=== PATIENT | male | born 1975 | race African-American/Black ===

== ENCOUNTER 2016-08-23 08:54 | Emergency (ER) | payer MEDICAID ==
[~2016-08-23] VITALS: Ht 175.3 cm; Wt 90.9 kg
[~2016-08-23 08:54] MED LIST: AMLO5TAB2 PO; DOCU-30 PO; NO MEDICATIONS; OXYC1TAB7 PO; OXYC5TAB2 PO; OXYC5TAB3 PO; PENI500T PO; SULF1TAB3 PO
[2016-08-23] MEDS ORDERED: KETOROLAC 30 MG/1 ML ONE (09:26)
[2016-08-23] MEDS ORDERED: KETOROLAC 30 MG/1 ML IVPush ONE (09:30)
[2016-08-23] MEDS ORDERED: SODIUM CHLORIDE FLUSH 10ML SYR IVF ONE (09:30)
[2016-08-23 09:58] LABS: BLOOD UREA NITROGEN 23 mg/dL (7-18)
[2016-08-23] MEDS ORDERED: MAALOX/HYOSCYAMINE/LIDOCAINE 45 ML BOTTLE ONE (11:28)
[2016-08-23] MEDS ORDERED: MAALOX/HYOSCYAMINE/LIDOCAINE 45 ML BOTTLE PO ONE (11:30)
[2016-08-23 11:59] VITALS: BP 122/81
== END 2016-08-23 12:01 | disposition home or self-care (01) ==
LOC: ED 10:12
DX: R07.89 Other chest pain (principal); I10 Essential (primary) hypertension
CPT/HCPCS: 36415; 71020; 76700; 80048; 82040; 84484; 85025; 85379; 93005; 96374; 99285; J1885

== ENCOUNTER 2017-05-04 09:03 | Emergency (ER) | payer MEDICAID ==
[~2017-05-04] VITALS: Ht 175.3 cm; Wt 100.1 kg
[~2017-05-04 09:03] MED LIST changes: +DOCU-131 PO; -DOCU-30 PO; +SULF-169 PO; -SULF1TAB3 PO
[2017-05-04 10:42] VITALS: BP 128/84
== END 2017-05-04 10:44 | disposition home or self-care (01) ==
LOC: ED 10:39
DX: R05 Cough (principal); I10 Essential (primary) hypertension
CPT/HCPCS: 71046; 99284

== ENCOUNTER 2017-07-24 09:39 | Emergency (ER) | payer MEDICAID ==
[~2017-07-24] VITALS: Ht 175.3 cm; Wt 100.2 kg
[2017-07-24 10:42] LABS: BASOPHILS # (AUTO) 0.01 x10^3/uL (0-0.1); BASOPHILS % (AUTO) 0 % (0-1); EOSINOPHILS # (AUTO) 0.05 x10^3/uL (0-0.4); EOSINOPHILS % (AUTO) 2 % (1-7); LYMPHOCYTES # (AUTO) 0.75 x10^3/uL (1-3.4); LYMPHOCYTES % (AUTO) 23 % (22-44); MD NO; MEAN CORPUSCULAR HEMOGLOBIN 29.7 pg (27.5-34.5); MEAN CORPUSCULAR HGB CONC 33.3 g/dL (33.2-36.2); MEAN CORPUSCULAR VOLUME 89.3 fL (81-97); MONOCYTES # (AUTO) 0.23 x10^3/uL (0.2-0.8); MONOCYTES % (AUTO) 7 % (2-9); NEUTROPHILS # (AUTO) 2.27 x10^3/uL (1.8-6.8); NEUTROPHILS % (AUTO) 69 % (42-75); PLATELET COUNT 108 x10^3/uL (130-400); RED BLOOD COUNT 4.64 x10^6/uL (4.38-5.82); RED CELL DISTRIBUTION WIDTH 15.6 % (9.4-14.8)
[2017-07-24 10:53] LABS: ANION GAP 6 mmol/L (5-15); CHLORIDE 100 mmol/L (98-107)
[2017-07-24 10:54] LABS: ALANINE AMINOTRANSFERASE 287 U/L (12-78)
[2017-07-24 10:56] LABS: ALKALINE PHOSPHATASE 57 U/L (45-117); BILIRUBIN,TOTAL 1.2 mg/dL (0.2-1.0); TOTAL PROTEIN 7.4 g/dL (6.4-8.2); TROPONIN I < 0.015 ng/mL (0.000-0.045)
[2017-07-24 11:00] VITALS: BP 113/65
[2017-07-24] MEDS ORDERED: POTASSIUM CHLORIDE 20 MEQ TAB.ER.PRT ONE (11:14)
[2017-07-24 11:26] LABS: CULTURE INDICATED? YES; MICROSCOPIC AUTO
[2017-07-24] MEDS ORDERED: POTASSIUM CHLORIDE 20 MEQ TAB.ER.PRT PO ONE (11:30)
== END 2017-07-24 11:55 | disposition home or self-care (01) ==
LOC: ED 11:29
DX: R94.5 Abnormal results of liver function studies (principal)
CPT/HCPCS: 36415; 80053; 81001; 83605; 84484; 85025; 87086; 93005; 99285

== ENCOUNTER 2018-06-18 19:30 | Emergency (ER) | payer BC, MEDICAID ==
[~2018-06-18] VITALS: Ht 175.3 cm; Wt 115.5 kg
[~2018-06-18 19:30] MED LIST changes: +AMLO-150 PO; -AMLO5TAB2 PO
[2018-06-18 19:41] VITALS: BP 165/82
--- NOTE | 2018-06-18 20:00 | NUR ---
LEFT RIB PAIN FOR FOUR DAYS. PT REPORTS TEMP OF 102 TWO DAYS AGO. +COUGH. PT STATES HURTS ON L SIDE WHEN HE COUGHS, SOMETIMES AROUND TO BACK. WHEN BLOWING NOSE, IT IS YELLOW
[2018-06-18 20:04] LABS: BASOPHILS # (AUTO) 0.02 x10^3/uL (0-0.1); BASOPHILS % (AUTO) 0 % (0-1); EOSINOPHILS # (AUTO) 0.08 x10^3/uL (0-0.4); EOSINOPHILS % (AUTO) 1 % (1-7); LYMPHOCYTES % (AUTO) 15 % (22-44); MD NO; MEAN CORPUSCULAR HEMOGLOBIN 28.6 pg (27.5-34.5); MEAN CORPUSCULAR HGB CONC 33.4 g/dL (33.2-36.2); MEAN CORPUSCULAR VOLUME 85.6 fL (81-97); MEAN PLATELET VOLUME 7.3 fL (7.4-10.4); MONOCYTES % (AUTO) 8 % (2-9); NEUTROPHILS # (AUTO) 6.95 x10^3/uL (1.8-6.8); NEUTROPHILS % (AUTO) 76 % (42-75); PLATELET COUNT 331 x10^3/uL (130-400); RED BLOOD COUNT 4.97 x10^6/uL (4.38-5.82)
--- NOTE | 2018-06-18 20:09 | NUR ---
PT PLACED ON PULSE OX STATED NO NEED FOR WATER HAULER
[2018-06-18 20:15] LABS: ALANINE AMINOTRANSFERASE 41 U/L (12-78); ALBUMIN 3.4 g/dL (3.4-5.0); ANION GAP 4 mmol/L (5-15); CALCIUM 8.3 mg/dL (8.5-10.1); CHLORIDE 105 mmol/L (98-107); CREATININE 1.03 mg/dL (0.7-1.3)
[2018-06-18 20:17] LABS: ALKALINE PHOSPHATASE 110 U/L (45-117); BILIRUBIN,TOTAL 0.5 mg/dL (0.2-1.0)
[2018-06-18] MEDS ORDERED: IBUPROFEN 600 MG TABLET PO ONE (20:30)
[2018-06-18] MEDS ORDERED: IBUPROFEN 600 MG TABLET ONE (20:43)
--- NOTE | 2018-06-18 21:22 | NUR ---
Patient/Caregiver given discharge instructions and they have confirmed that they understand the instructions. Patient ambulatory with steady gait.
== END 2018-06-18 21:24 | disposition home or self-care (01) ==
LOC: ED 20:28
DX: B34.9 Viral infection, unspecified (principal)
CPT/HCPCS: 36415; 71046; 80053; 85025; 93005; 99284

== ENCOUNTER 2018-08-03 06:15 | Emergency (ER) | payer SELFPAY ==
[~2018-08-03] VITALS: Ht 175.3 cm; Wt 117.5 kg
[2018-08-03 06:18] VITALS: BP 133/88
--- NOTE | 2018-08-03 06:39 | NUR ---
PT AMBULATED TO ROOM. PHYSICIAN AT BEDSIDE. VSS.
[2018-08-03] MEDS ORDERED: DEXAMETHASONE 4 MG/ML, 1ML ONE (06:56)
--- NOTE | 2018-08-03 06:57 | NUR ---
HANDOFF OF CARE GIVEN TO ANDREA FLORES.
[2018-08-03] MEDS ORDERED: DEXAMETHASONE 4 MG/ML, 1ML PO ONE (07:00)
--- NOTE | 2018-08-03 07:00 | NUR ---
received report from Zakia. pt upright on gurney awake & comfortable, responds approp to staff, NAD, comfort measures provided, call light within reach.
--- NOTE | 2018-08-03 07:13 | NUR ---
Patient given discharge instructions and Rx, they have confirmed that they understand the instructions. Patient ambulatory with steady gait.
== END 2018-08-03 07:15 | disposition home or self-care (01) ==
LOC: ED 06:50
DX: J02.0 Streptococcal pharyngitis (principal); H66.92 Otitis media, unspecified, left ear
CPT/HCPCS: 99283; J1100

== ENCOUNTER 2019-05-14 09:58 | Emergency (ER) | payer MEDICAID ==
[~2019-05-14] VITALS: Ht 175.3 cm; Wt 122.0 kg
--- NOTE | 2019-05-14 10:56 | NUR ---
patient arrive with flu like symptoms and cough and cold for two days. left for xray
[2019-05-14 11:00] LABS: RAPID INFLUENZA A Negative (Negative); RAPID INFLUENZA B Negative (Negative)
[2019-05-14 11:08] VITALS: BP 130/78
== END 2019-05-14 11:11 | disposition home or self-care (01) ==
LOC: ED 11:05
DX: J06.9 Acute upper respiratory infection, unspecified (principal)
CPT/HCPCS: 71046; 87400; 99284

== ENCOUNTER 2020-03-28 08:02 | Emergency (ER) | payer MEDICAID ==
[~2020-03-28] VITALS: Ht 177.8 cm; Wt 111.6 kg
--- NOTE | 2020-03-28 08:38 | NUR ---
PT C/O INCREASED URINARY URGENCY BUT NOT PEEING ALOT. PT STATES ITS BEEN HAPPENING FOR 2 WEEKS. PT STATES HE INITIALLY HE HAD SOME BURNING AT THE TIP OF THE PENIS, BUT NOT ALL THE TIME. PT DENIES ABD PAIN. PT HAS OCCASIONAL PAIN IN THE SCROTUM, BUT NONE AT THIS TIME.
[2020-03-28] MEDS ORDERED: KETOROLAC 30 MG/1 ML ONE (08:44)
[2020-03-28 08:56] LABS: BASOPHILS % (AUTO) 1 % (0-1); EOSINOPHILS % (AUTO) 0 % (1-7); LYMPHOCYTES % (AUTO) 22 % (22-44); MEAN CORPUSCULAR HEMOGLOBIN 29.9 pg (27.5-34.5); MEAN CORPUSCULAR HGB CONC 34.5 g/dL (33.2-36.2); MEAN PLATELET VOLUME 7.7 fL (7.4-10.4); MONOCYTES % (AUTO) 13 % (2-9); NEUTROPHILS % (AUTO) 64 % (42-75); PLATELET COUNT 255 x10^3/uL (130-400); RED BLOOD COUNT 5.31 x10^6/uL (4.38-5.82); RED CELL DISTRIBUTION WIDTH 16.3 % (9.4-14.8)
[2020-03-28] MEDS ORDERED: KETOROLAC 30 MG/1 ML IM ONE (09:00)
[2020-03-28 09:02] LABS: ALBUMIN 3.8 g/dL (3.4-5.0); ANION GAP 6 mmol/L (5-15); CALCIUM 8.7 mg/dL (8.5-10.1); CHLORIDE 103 mmol/L (98-107); CREATININE 1.28 mg/dL (0.7-1.3)
[2020-03-28 09:10] LABS: MD NO
[2020-03-28 09:17] LABS: MICROSCOPIC INDICATED
[2020-03-28 10:03] VITALS: BP 105/66
--- NOTE | 2020-03-28 11:21 | NUR ---
PT REC'VD DISCHARGE INSTRUCTIONS AND EDUCATION. PT HAD NO FURTHER QUESTIONS. PT AMBULATED TO DISCHARGE AREA, STEADY GAIT.
== END 2020-03-28 11:23 | disposition home or self-care (01) ==
LOC: ED 09:18
DX: N50.812 Left testicular pain (principal); R39.15 Urgency of urination
CPT/HCPCS: 36415; 76870; 80048; 81001; 82040; 85025; 87086; 96372; 99284; J1885

== ENCOUNTER 2020-12-22 09:48 | Emergency (ER) | payer MEDICAID ==
[~2020-12-22] VITALS: Ht 175.3 cm; Wt 124.0 kg
[~2020-12-22 09:48] MED LIST changes: -OXYC5TAB3 PO; +OXYC5TAB98 PO
--- NOTE | 2020-12-22 11:21 | NUR ---
TASK RN NOTE: NO ANSWER WHEN CALLED FROM [facility] X [facility]
[2020-12-22 15:23] VITALS: BP 134/81
--- NOTE | 2020-12-22 15:30 | NUR ---
PT PROVIDED WITH CANE, INSTRUCTED ON USE
--- NOTE | 2020-12-22 15:45 | NUR ---
REVIEWED DC INSTRUCTIONS WITH PT, UNDERSTANDING VERBALIZED. PT GIVEN REFERRAL TO [facility]. PT LEFT AMB, GAIT STEADY
== END 2020-12-22 15:26 ==
LOC: ED 15:25
DX: M77.8 Other enthesopathies, not elsewhere classified (principal); M79.672 Pain in left foot
CPT/HCPCS: 99283